=== PATIENT | female | born 1980 | race Caucasian/White ===

== ENCOUNTER 2016-08-05 12:46 | Emergency (ER) | payer OTHER ==
[2016-08-05 13:07] VITALS: BP 122/78
[2016-08-05] MEDS ORDERED: EPINEPHRINE SUBQ ONE (13:35)
[2016-08-05] MEDS ORDERED: PEPCID PO ONE (13:35)
--- NOTE | 2016-08-05 13:43 | PROVIDER DOCUMENTATION ---
HPI-Rash/Wound/ReCheck <Anthony Javierdoreen Juarez - Last Filed: 08/05/16 13:42> - General Source: patient - History of Present Illness-Dermatology Location: reports: face, other (throat) Quality: reports: stinging (to face), other (tightness to throat) Onset/Duration: reports: just prior to arrival Timing: reports: still present, intermittent Context/Associated Symptoms: reports: denies symptoms Identifiable cause?: Yes Exposure: reports: unknown cause Locality of Occurance: Home Similar Symptoms Previously?: Yes Recently seen or treated by another doctor?: Yes <Tawnya Corrigan - Last Filed: 08/05/16 13:59> - General Chief Complaint: Allergic Reaction Stated Complaint: ALLERGIC REACTION Time Seen by Provider: 08/05/16 13:17 Allergies/Adverse Reactions: Allergies Allergy/AdvReac Type Severity Reaction Status Date / Time cefuroxime axetil * Allergy Intermediate HIVES Verified 09/17/15 15:03 [From Ceftin] ciprofloxacin [From Cipro] Allergy Intermediate HIVES Verified 09/17/15 15:03 ciprofloxacin HCl * Allergy Intermediate HIVES Verified 09/17/15 15:03 [From Cipro] diphenhydramine HCl * Allergy Intermediate HIVES Verified 09/17/15 15:03 [From Benadryl] egg Allergy Intermediate Unknown Verified 09/17/15 15:03 hydrocodone bitartrate * Allergy Intermediate NAUSEA Verified 09/17/15 15:03 [From Lortab] latex Allergy Intermediate Unknown Verified 09/17/15 15:03 morphine Allergy Intermediate HIVES Verified 09/17/15 15:03 oxycodone HCl * Allergy Intermediate NAUSEA Verified 09/17/15 15:03 [From Percocet] propofol Allergy Intermediate Unknown Verified 09/17/15 15:03 vancomycin Allergy Intermediate HIVES Verified 09/17/15 15:03 tramadol Allergy ITCHING Verified 09/17/15 15:03 butorphanol tartrate * AdvReac SHORTNESS Verified 09/17/15 15:03 [From Stadol] OF BREATH milk AdvReac Unknown Verified 09/17/15 15:03 prednisone AdvReac Unknown Verified 07/01/16 17:59 Home Medications: Home Medication List Medication Instructions Recorded Confirmed Last Taken Type Cholecalciferol (Vitamin D3) 2,000 unit PO QHS 0309/13/15 08/15/15 History [D-2000] Esomeprazole [Nexium] 40 mg PO BID 08/21/13 09/13/15 08/15/15 History Montelukast Sodium 10 mg PO QHS 08/21/13 09/13/15 08/15/15 History Propranolol [Inderal] 60 mg PO QHS 08/21/13 09/13/15 08/15/15 History Solifenacin Succinate [Vesicare] 10 mg PO QHS 08/21/13 09/13/15 08/15/15 History Budesonide/Formoterol Fumarate 2 puff INH DAILY 08/15/15 09/13/15 08/15/15 History [Symbicort 160-4.5 Mcg Inhaler] Clindamycin [Cleocin] 150 mg PO Q6HR #40 capsule 07/01/16 Unknown Rx Amoxicillin [Amoxil] 500 mg PO BID #14 capsule 08/05/16 Unknown Rx Epinephrine Auto Injector [Epipen] 0.3 mg IM DIRECTED PRN PRN #1 08/05/16 Unknown Rx [email or web address] - History of Present Illness-Dermatology Nature of Presenting Problem: Pt is 35 y/o F presents to the ED with allergic reactions to meds. Pt states seeing PCP and being diagnosed with strep and kidney infection. Pt states throat feeling tight and pressure in her chest. Pt denies F. (Tawnya Corrigan) Review of Systems - Adult - REVIEW OF SYSTEMS - ADULT Constitutional: denies: chills, fever Eyes: denies: blurred vision, double vision Ears, Nose, Mouth & Throat: reports: throat swelling. denies: ear pain, nose pain Cardiovascular: denies: chest pain, heart murmur, irregular heart rate Respiratory: denies: cough, shortness of breath, wheezing Gastrointestinal: denies: abdominal pain, diarrhea, nausea, vomiting Genitourinary: denies: dysuria, hematuria Musculoskeletal: denies: bone pain, joint pain, neck pain Integumentary: reports: rash (to face). denies: hives, itching Neurological: denies: dizziness/vertigo, headache/migraines Psychiatric: reports: no symptoms reported Endocrine: reports: no symptoms reported Hematologic/Lymphatic: reports: no symptoms reported Allergic/Immunologic: reports: no symptoms reported All Other Systems: Reviewed and Negative <Tawnya Corrigan - Last Filed: 08/05/16 13:59> Past History - Adult - PAST MEDICAL HISTORY-ADULT Major Childhood Illnesses: reports: denies history Cardiovascular: reports: arrhythmia, blood clots, HTN, hyperlipidemia Respiratory: reports: asthma Gastrointestinal: reports: GERD, ulcer, other (gastroparesis) Obstetrical/Gynecological: reports: denies history Genitourinary: reports: chronic UTI's (pt report sfrequent UTI's, last episode greater than a year ago. ) Musculoskeletal: reports: arthritis, chronic pain, fibromyalgia Neurological: reports: Seizures/Epilepsy, other (spina bifida; hydrocephalus) Endocrine/Immune: reports: anemia Other Conditions: reports: denies history - PRIOR SURGERIES/PROCEDURES Surgical/Procedure History: reports: appendectomy, cholecystectomy, orthopedic ( extremity) (ankle), other (shunts) - IMMUNIZATION STATUS Childhood Immunizations: See Nurse Assessment Flu Vaccine: See Nurse Assessment - FAMILY HISTORY Family History: reviewed, not pertinent <Tim Javier - Last Filed: 08/05/16 13:42> - PAST MEDICAL HISTORY-ADULT Review of Records: reports: Nursing Assessment Review, Medications Reviewed, Social history reviewed & non-contributory. Major Childhood Illnesses: reports: denies history Cardiovascular: reports: HTN, hyperlipidemia Respiratory: reports: asthma Gastrointestinal: reports: GERD Obstetrical/Gynecological: reports: denies history Genitourinary: reports: denies history Musculoskeletal: reports: denies history Neurological: reports: Seizures/Epilepsy Endocrine/Immune: reports: denies history Other Conditions: reports: denies history - PRIOR SURGERIES/PROCEDURES Surgical/Procedure History: reports: appendectomy, cholecystectomy - IMMUNIZATION STATUS Childhood Immunizations: See Nurse Assessment Flu Vaccine: See Nurse Assessment - FAMILY HISTORY Family History: reviewed, not pertinent - SOCIAL HISTORY Smoking: quit less than 1 year, cigarettes Substance Use: denies Living Situation: family <Tawnya Corrigan - Last Filed: 08/05/16 13:59> Physical Exam-General - PHYSICAL EXAM-ADULT Initial Vital Signs Reviewed: Yes - CONSTITUTIONAL General Appearance: appears well, alert, no apparent distress - EYES Eyes: PERRL/EOMI, pink conjunctivae, fundi clear, no AV nicking - HEAD, EARS, NOSE, MOUTH & THROAT HENMT: normocephalic/atraumatic, moist mucous membranes, normal ENT inspection, TMs normal, pharynx normal - NECK Neck: non-tender, full range of motion, supple, normal inspection - RESPIRATORY Respiratory: chest non-tender, lungs clear, normal breath sounds, no pleuratic chest pain, no respiratory distress, no accessory muscle use - CARDIOVASCULAR Cardiovascular: normal peripheral pulses, regular rate, rhythm, no edema, no gallop, no JVD, no murmur - GASTROINTESTINAL (ABDOMEN) Abdominal Exam: normal bowel sounds, non tender, soft, no organomegaly, no pulsatile mass - LYMPHATIC Lymphatic: no adenopathy - MUSCULOSKELETAL Back Exam: normal inspection, no CVA tenderness, no vertebral tenderness Extremity: normal range of motion, non-tender - SKIN Integumentary: normal color, normal turgor, warm/dry - NEUROLOGIC Neurologic: stable manager II-XII nml as tested, grossly normal, no motor/sensory deficits - PSYCHIATRIC Psych/Mental Status: normal mood/affect, normal thought content, normal thought process, oriented x 3 <Tawnya Corrigan - Last Filed: 08/05/16 13:59> Progress <Tim Javier - Last Filed: 08/05/16 13:42> <Tawnya Corrigan - Last Filed: 08/05/16 13:59> - PLAN OF CARE/RESULTS Progress/Plan/Lab Results: Orders Category Date Time Status Epinephrine Med 08/05/16 13:35 Discontinued 0.3 mg SUBQ NOW ONE Famotidine [Pepcid] Med 08/05/16 13:35 Discontinued 20 mg PO NOW ONE Vital Signs - 24 hr 08/05/16 13:03 Temperature 98 F Pulse Rate 78 Respiratory 18 Rate Blood Pressure 122/78 O2 Sat by Pulse 100 Oximetry (Tawnya Corrigan) Departure - Departure Time of Disposition Order: 13:42 Certified Medical Emergency: Urgent <Tim Javier - Last Filed: 08/05/16 13:42> - Departure Time of Disposition Order: 13:59 Certified Medical Emergency: Emergent <Tawnya Corrigan - Last Filed: 08/05/16 13:59> - Departure DIAGNOSIS: Medication reaction, Rash Disposition: HOME 01 Condition: Good Additional Instructions: Take medication as prescribed. Follow up with your primary care provider. ED Follow Up Instructions: You have been treated by a care provider in the Emergency Department. These instructions are being provided to you so you can have an understanding of how to care for yourself upon discharge. Upon discharge from the Emergency Department, you are responsible for making arrangements for follow-up care by a physician of your choice. Take all prescribed medications as directed. Return to the Emergency Department immediately for any new or worsening symptoms. You may call the Physician Referral phone number at [phone] to obtain a list of Physicians who are taking new patients. Prescriptions: Amoxicillin [Amoxil] 500 mg PO BID #14 capsule Epinephrine Auto Injector [Epipen] 0.3 mg IM DIRECTED PRN PRN #1 [email or web address] PRN Reason: anaphylaxis Referrals: Brittany Bullock CRNP [Primary Care Provider] - Forms: Return to School/Parent Work Instructions: Drug Rash, Epinephrine injection, Amoxicillin capsules or tablets , Drug Allergy Attestation - Physician/ [id number] Attestation Patient care was provided by Advanced Practice Provider:: Yes Advanced Practice Provider:: Tim Javier Advanced Practice Provider documentation review:: The Mid-level provider documentation, treatment plan and medical decision making was reviewed by the physician who agrees with all treatment and medical decision making by the P. <Tim Javier - Last Filed: 08/05/16 13:42> - Scribe Verification/Attestation Scribe:: Tawnya Corrigan Acting as Scribe for:: Tim Javier Scribe documention review:: This chart was documented by a scribe and accurately reflects the service the provider performed and the decisions made by the provider. <Tawnya Corrigan - Last Filed: 08/05/16 13:59> Physician Attestation
== END 2016-08-05 13:57 | disposition home or self-care (01) ==
LOC: P.ED 12:46
DX: T50.905A Adverse effect of unspecified drugs, medicaments and biological substances, initial encounter (principal); R21 Rash and other nonspecific skin eruption; R07.89 Other chest pain; R22.1 Localized swelling, mass and lump, neck; I10 Essential (primary) hypertension; E78.5 Hyperlipidemia, unspecified; J45.909 Unspecified asthma, uncomplicated; K21.9 Gastro-esophageal reflux disease without esophagitis; M19.90 Unspecified osteoarthritis, unspecified site; G89.29 Other chronic pain; M79.7 Fibromyalgia; Z79.899 Other long term (current) drug therapy; Q05.9 Spina bifida, unspecified; Z87.440 Personal history of urinary (tract) infections; Z87.891 Personal history of nicotine dependence
CPT/HCPCS: 96374; J0171

== ENCOUNTER 2016-08-21 09:05 | Emergency (ER) | payer OTHER ==
[2016-08-21 09:19] VITALS: BP 116/82
[2016-08-21] MEDS ORDERED: ZOFRAN ODT PO ONE (09:30)
[2016-08-21 09:56] LABS: URINE CULTURE PL NEEDED? NO; URINE SOURCE CLEAN CATCH
[2016-08-21 10:06] LABS: BILIRUBIN URINE NEGATIVE (NEGATIVE); BLOOD URINE NEGATIVE (NEGATIVE); CLARITY CLEAR (CLEAR); COLOR YELLOW; GLUCOSE URINE NEGATIVE (NEGATIVE); LEUKOCYTES URINE TRACE (NEGATIVE); NITRITE URINE NEGATIVE (NEGATIVE); PROTEIN URINE NEGATIVE (NEGATIVE); SP GRAVITY URINE 1.015; UROBILINOGEN URINE NORMAL
[2016-08-21 10:19] LABS: UR AMPHETAMINES QUAL NONE DETECTED (NONE DETECT); UR BARBITUATES QUAL NONE DETECTED (NONE DETECT); UR BENZODIAZEPIN QUAL NONE DETECTED (NONE DETECT); UR CANNABINOIDS QUAL NONE DETECTED (NONE DETECT); UR COCAINE QUAL NONE DETECTED (NONE DETECT); UR MDMA QUAL NONE DETECTED (NONE DETECT); UR METHADONE QUAL NONE DETECTED (NONE DETECT); UR METHAMPHETAMINE QUAL NONE DETECTED (NONE DETECT); UR OPIATES QUAL NONE DETECTED (NONE DETECT); UR OXYCODONE QUAL NONE DETECTED (NONE DETECT); UR PCP QUAL NONE DETECTED (NONE DETECT); UR TCA QUAL NONE DETECTED (NONE DETECT)
--- NOTE | 2016-08-21 10:20 | PROVIDER DOCUMENTATION ---
HPI-Headache - General Chief Complaint: General Adult Stated Complaint: HEADACHE Time Seen by Provider: 08/21/16 09:28 Source: patient, family (MOTHER) Allergies/Adverse Reactions: Patient Allergies Allergy/AdvReac Type Severity Reaction Status Date / Time cefuroxime axetil * Allergy Intermediate HIVES Verified 09/17/15 15:03 [From Ceftin] ciprofloxacin [From Cipro] Allergy Intermediate HIVES Verified 09/17/15 15:03 ciprofloxacin HCl * Allergy Intermediate HIVES Verified 09/17/15 15:03 [From Cipro] diphenhydramine HCl * Allergy Intermediate HIVES Verified 09/17/15 15:03 [From Benadryl] egg Allergy Intermediate Unknown Verified 09/17/15 15:03 hydrocodone bitartrate * Allergy Intermediate NAUSEA Verified 09/17/15 15:03 [From Lortab] latex Allergy Intermediate Unknown Verified 09/17/15 15:03 morphine Allergy Intermediate HIVES Verified 09/17/15 15:03 oxycodone HCl * Allergy Intermediate NAUSEA Verified 09/17/15 15:03 [From Percocet] propofol Allergy Intermediate Unknown Verified 09/17/15 15:03 vancomycin Allergy Intermediate HIVES Verified 09/17/15 15:03 tramadol Allergy ITCHING Verified 09/17/15 15:03 butorphanol tartrate * AdvReac SHORTNESS Verified 09/17/15 15:03 [From Stadol] OF BREATH doxycycline AdvReac ANAPHYLAXIS Verified 08/21/16 09:19 milk AdvReac Unknown Verified 09/17/15 15:03 prednisone AdvReac Unknown Verified 07/01/16 17:59 Home Medications: Home Medication List Medication Instructions Recorded Confirmed Last Taken Type Cholecalciferol (Vitamin D3) 2,000 unit PO QHS 08/21/13 08/21/16 08/15/15 History [D-2000] Esomeprazole [Nexium] 40 mg PO BID 08/21/13 08/21/16 08/15/15 History Montelukast Sodium 10 mg PO QHS 08/21/13 08/21/16 08/15/15 History Propranolol [Inderal] 60 mg PO QHS 08/21/13 08/21/16 08/15/15 History Solifenacin Succinate [Vesicare] 10 mg PO QHS 08/21/13 08/21/16 08/15/15 History Budesonide/Formoterol Fumarate 2 puff INH DAILY 08/15/15 08/21/16 08/15/15 History [Symbicort 160-4.5 Mcg Inhaler] Epinephrine Auto Injector [Epipen] 0.3 mg IM DIRECTED PRN PRN #1 08/05/16 Unknown Rx [email or web address] Diazepam [Valium] 2 mg PO DAILY PRN 08/21/16 08/21/16 Unknown History Dicyclomine [Bentyl] 10 mg PO DAILY PRN 08/21/16 08/21/16 Unknown History Fluticasone 50 Mcg Nasal [place] 2 spray INH DAILY 08/21/16 08/21/16 Unknown History [Flonase] Meclizine HCl [Antivert] 25 mg PO Q8H PRN PRN 08/21/16 08/21/16 Unknown History Promethazine [Phenergan] 25 mg PO Q6H PRN PRN 08/21/16 08/21/16 Unknown History - History of Present Illness-Headache Nature of Presenting Problem: Pt is 35 y/o F presents to the ED with PEÑA. Pt states she has shunt placed in R side of head for hydrocephalus. Pt states PEÑA started yesterday. Pt states N with one episode of V. Pt denies CP and abdominal pain. Headache Location: reports: occipital Quality of Pain: reports: pressure Severity: reports: mild Onset/Duration: reports: 24 hours ago Timing: reports: still present, intermittent Headache Context: reports: nothing Headache History: reports: occasional headaches Any recent trauma/injury?: reports: none Headache severity at the maximum: moderate Headache Exacerbated by:: reports: nothing Modifying Factors: improves with: nothing Associated Symptoms: reports: headache, nausea, vomiting. denies: short of breath, decreased ability to walk or stand, fainting, dizziness, confusion, chest pain, neck/back pain, fatigue, fever/chills, insomnia, loss of consciousness, muscle spasms, numbness in legs/feet, paresthesia, diaphoretic, ringing in ears, seizures, sleepy, slurred speech, tingling in legs/feet, trouble walking, vision changes, weakness Similar Symptoms Previously?: Yes Recently seen or treated by another doctor?: No Review of Systems - Adult - REVIEW OF SYSTEMS - ADULT Constitutional: denies: chills, fever Eyes: denies: blurred vision, double vision Ears, Nose, Mouth & Throat: denies: ear pain, nose pain, throat pain Cardiovascular: denies: chest pain, heart murmur, irregular heart rate Respiratory: denies: cough, shortness of breath, wheezing Gastrointestinal: reports: nausea, vomiting. denies: abdominal pain, diarrhea Genitourinary: denies: dysuria, hematuria Musculoskeletal: denies: bone pain, joint pain, neck pain Integumentary: denies: hives, itching Neurological: reports: headache/migraines (PEÑA). denies: dizziness/vertigo Psychiatric: reports: no symptoms reported Endocrine: reports: no symptoms reported Hematologic/Lymphatic: reports: no symptoms reported Allergic/Immunologic: reports: no symptoms reported All Other Systems: Reviewed and Negative Past History - Adult - PAST MEDICAL HISTORY-ADULT Review of Records: reports: Nursing Assessment Review, Medications Reviewed, Social history reviewed & non-contributory. Major Childhood Illnesses: reports: denies history Cardiovascular: reports: HTN, hyperlipidemia Respiratory: reports: asthma Gastrointestinal: reports: GERD Obstetrical/Gynecological: reports: denies history Genitourinary: reports: denies history Musculoskeletal: reports: denies history Neurological: reports: Seizures/Epilepsy Endocrine/Immune: reports: denies history Other Conditions: reports: denies history - PRIOR SURGERIES/PROCEDURES Surgical/Procedure History: reports: appendectomy, cholecystectomy - IMMUNIZATION STATUS Childhood Immunizations: See Nurse Assessment Flu Vaccine: See Nurse Assessment - FAMILY HISTORY Family History: reviewed, not pertinent - SOCIAL HISTORY Smoking: quit less than 1 year, cigarettes Substance Use: denies Living Situation: family Physical Exam- Neurological - Physical Exam-Neuro Initial Vital Signs Reviewed: Yes General Appearance: appears well, alert, no apparent distress Eye Exam: bilateral eye: normal inspection, PERRL, EOMI HENMT: normocephalic/atraumatic, moist mucous membranes, normal ENT inspection, TMs normal, pharynx normal Head Injury: no evidence of injury Neck: non-tender, full range of motion, supple, normal inspection Respiratory: chest non-tender, lungs clear, normal breath sounds, no pleuratic chest pain, no respiratory distress, no accessory muscle use Cardiovascular: normal peripheral pulses, regular rate, rhythm, no edema, no gallop, no JVD, no murmur Abdominal Exam: normal bowel sounds, non tender, soft, no organomegaly, no pulsatile mass Lymphatic: no adenopathy Extremity: normal range of motion, non-tender, no pedal edema, no calf tenderness, normal capillary refill florist designer Exam: normal hearing, normal speech, PERRL Coordination/Gait: normal finger to nose, normal gait Motor/Sensory: no motor deficit, no sensory deficit, no pronator drift Neurologic: grossly normal Integumentary: normal color, normal turgor, warm/dry Psych/Mental Status: normal mood/affect, oriented x 3 Progress - PLAN OF CARE/RESULTS Progress/Plan/Lab Results: Laboratory Tests 08/21/16 08/21/16 08/21/16 09:47 09:47 09:47 Urine Source CLEAN CATCH Urine Color YELLOW Urine Clarity CLEAR Urine pH 7.0 Ur Specific [place] 1.015 Urine Protein NEGATIVE Urine Ketones NEGATIVE Urine Blood NEGATIVE Urine Nitrite NEGATIVE Urine Bilirubin NEGATIVE Urine Urobilinogen NORMAL Urine WBC TRACE A Urine Glucose NEGATIVE Urine Test NEGATIVE Urine Opiates Screen NONE DETECTED Ur Oxycodone Screen NONE DETECTED Urine Methadone Screen NONE DETECTED Ur Barbituates Screen NONE DETECTED Ur Tricyclics Screen NONE DETECTED Ur Phencyclidine Scrn NONE DETECTED Ur Amphetamines Screen NONE DETECTED U Methamphetamines Scrn NONE DETECTED Urine MDMA Screen NONE DETECTED U Benzodiazepines Scrn NONE DETECTED Urine Cocaine Screen NONE DETECTED U Cannabinoids Screen NONE DETECTED Orders Category Date Time Status NPO Diet 08/21/16 10:17 Active CHEST-1 VIEW [RAD] Stat Exams 08/21/16 10:17 Ordered HEAD W/O CONTRAST [CT] Stat Exams 08/21/16 09:30 Ordered AMYLASE [CHEM] Stat Lab 08/21/16 10:17 Ordered CBC WITH ELECTRONIC DIFF [HEME] Stat Lab 08/21/16 10:17 Ordered COMPREHENSIVE METABOLIC PANEL [CHEM] Stat Lab 08/21/16 10:17 Ordered LIPASE [CHEM] Stat Lab 08/21/16 10:17 Ordered TEST-URINE [PREG] Stat Lab 08/21/16 09:[address] W/POSS RFLX CULT [URINALYSIS] Stat Lab 08/21/16 09:47 Results URINE DRUG SCREEN [address] Stat Lab 08/21/16 09:47 Completed Ondansetron Odt [Zofran Odt] Med 08/21/16 09:30 Discontinued 4 mg PO NOW ONE Vital Signs - 24 hr 08/21/16 09:15 Temperature 98.0 F Pulse Rate 96 H Respiratory 18 Rate Blood Pressure 116/82 O2 Sat by Pulse 100 Oximetry Laboratory Tests 08/21/16 08/21/16 08/21/16 09:47 09:47 09:47 WBC RBC Hgb Hct MCV MCH MCHC RDW Std Deviation Plt Count MPV Immature Gran % (Auto) Neut % (Auto) Lymph % (Auto) Mcdonald % (Auto) Eos % (Auto) Baso % (Auto) Immature Gran # (Auto) Neut # (Auto) Lymph # (Auto) Mcdonald # (Auto) Eos # (Auto) Baso # (Auto) Sodium Potassium Chloride Carbon Dioxide Anion Gap BUN Creatinine Estimated GFR/1.73 m2 BUN/Creatinine Ratio Glucose Calculated Osmolality Calcium Total Bilirubin AST ALT Alkaline Phosphatase Total Protein Albumin Globulin Albumin/Globulin Ratio Amylase Lipase Urine Source CLEAN CATCH Urine Color YELLOW Urine Clarity CLEAR Urine pH 7.0 Ur Specific [place] 1.015 Urine Protein NEGATIVE Urine Ketones NEGATIVE Urine Blood NEGATIVE Urine Nitrite NEGATIVE Urine Bilirubin NEGATIVE Urine Urobilinogen NORMAL Urine Microscopic RBC Not Reportable Urine WBC TRACE A Ur Epithelial Cells >10 A Urine Glucose NEGATIVE Urine Test NEGATIVE Urine Opiates Screen NONE DETECTED Ur Oxycodone Screen NONE DETECTED Urine Methadone Screen NONE DETECTED Ur Barbituates Screen NONE DETECTED Ur Tricyclics Screen NONE DETECTED Ur Phencyclidine Scrn NONE DETECTED Ur Amphetamines Screen NONE DETECTED U Methamphetamines Scrn NONE DETECTED Urine MDMA Screen NONE DETECTED U Benzodiazepines Scrn NONE DETECTED Urine Cocaine Screen NONE DETECTED U Cannabinoids Screen NONE DETECTED 08/21/16 08/21/16 10:55 10:55 WBC 5.74 RBC 3.93 L Hgb 12.6 Hct 38.2 MCV 97.2 MCH 32.1 H MCHC 33.0 RDW Std Deviation 11.6 Plt Count 387 MPV 9.2 Immature Gran % (Auto) 0.2 Neut % (Auto) 59.3 Lymph % (Auto) 29.1 Mcdonald % (Auto) 8.0 Eos % (Auto) 2.4 Baso % (Auto) 1.0 H Immature Gran # (Auto) 0.01 Neut # (Auto) 3.40 Lymph # (Auto) 1.67 Mcdonald # (Auto) 0.46 Eos # (Auto) 0.14 Baso # (Auto) 0.06 Sodium 142 Potassium 4.1 Chloride 107 Carbon Dioxide 25 Anion Gap 10 BUN 11 Creatinine 0.4 L Estimated GFR/1.73 m2 > 60 BUN/Creatinine Ratio 28 Glucose 100 Calculated Osmolality 283 Calcium 9.2 Total Bilirubin 0.40 AST 19 ALT 16 Alkaline Phosphatase 57 Total Protein 6.9 Albumin 4.2 Globulin 3.0 Albumin/Globulin Ratio 2.0 Amylase 88 Lipase 42 Urine Source Urine Color Urine Clarity Urine pH Ur Specific [place] Urine Protein Urine Ketones Urine Blood Urine Nitrite Urine Bilirubin Urine Urobilinogen Urine Microscopic RBC Urine WBC Ur Epithelial Cells Urine Glucose Urine Test Urine Opiates Screen Ur Oxycodone Screen Urine Methadone Screen Ur Barbituates Screen Ur Tricyclics Screen Ur Phencyclidine Scrn Ur Amphetamines Screen U Methamphetamines Scrn Urine MDMA Screen U Benzodiazepines Scrn Urine Cocaine Screen U Cannabinoids Screen - XRAY 1 XRAY: Bilateral XRAY Study: Chest Impression: Normal XRAY Interpretation: negative - CT/MRI 1 CT Study: Head Impression: Abnormal (rt ethmoid sinusitis) CT Results: no acute intracranial disease Departure - Departure Time of Disposition Order: 12:02 DIAGNOSIS: Nausea Headache Qualifiers: Headache type: unspecified Headache chronicity pattern: unspecified pattern Intractability: not intractable Qualified Code(s): R51 - Headache Sinusitis Qualifiers: Sinusitis location: ethmoidal Chronicity: unspecified Qualified Code(s): J32.2 - Chronic ethmoidal sinusitis Disposition: HOME 01 Certified Medical Emergency: Emergent Condition: Stable Additional Instructions: ED Follow Up Instructions: You have been treated by a care provider in the Emergency Department. These instructions are being provided to you so you can have an understanding of how to care for yourself upon discharge. Upon discharge from the Emergency Department, you are responsible for making arrangements for follow-up care by a physician of your choice. Take all prescribed medications as directed. Return to the Emergency Department immediately for any new or worsening symptoms. You may call the Physician Referral phone number at [phone] to obtain a list of Physicians who are taking new patients. Referrals: Brittany Bullock CRNP [Primary Care Provider] - Call for Appoint. -1 week Instructions: Migraine Headache, [id number] Attestation - Scribe Verification/Attestation Scribe:: Tawnya Corrigan Acting as Scribe for:: Kaylin Topete Scribe documention review:: This chart was documented by a scribe and accurately reflects the service the provider performed and the decisions made by the provider.
[2016-08-21 10:30] LABS: URINE EPITHELIAL CELLS >10 /HPF (<10)
[2016-08-21 11:04] LABS: MANUAL DIFF NEEDED? NO
[2016-08-21 11:06] LABS: EOS# 0.14 X1000 (0.0-0.7); EOS% 2.4 % (0.0-10.0); HEMATOCRIT 38.2 % (37.0-47.0); HEMOGLOBIN 12.6 g/dL (12.0-16.0); IMM GRAN# 0.01 X1000 (0.0-0.04); IMM GRAN% 0.2 % (0.0-0.5); LYMPH# 1.67 X1000 (1.2-3.4); LYMPH% 29.1 % (20.5-51.1); MCH 32.1 PG (27-31); MCV 97.2 FL (81-99); MONO# 0.46 X1000 (0.11-0.59); MPV 9.2 FL (7.4-10.4); NEUT% 59.3 % (42.2-75.2); PLT 387 X1000 (130-400); RBC 3.93 XMIL (4.2-5.4)
[2016-08-21 11:28] LABS: AGAP 10; ALBUMIN 4.2 g/dL (3.5-5.0); ALKALINE PHOSPHATASE 57 U/L (32-104); AMYLASE 88 U/L (20-200); BUN 11 mg/dL (8-22); CALCIUM 9.2 mg/dL (8.8-10.2); CHLORIDE 107 mmol/L (98-107); COSMO 283; GOT 19 U/L (10-30); GPT 16 U/L (10-36); LIPASE 42 U/L (13-60); POTASSIUM 4.1 mmol/L (3.5-5.1); SODIUM 142 mmol/L (136-145); TCO2 25 mmol/L (25-35); TOTAL PROTEIN 6.9 g/dL (6.3-8.3)
--- NOTE | 2016-08-21 11:29 | Diag Imaging Result Document ---
PROCEDURE NAME: HEAD W/O CONTRAST - 08/21/2016 CT OF THE HEAD WITHOUT CONTRAST: FINDINGS: There is no evidence of hydrocephalus and the ventricular system is similar in appearance to the previous study of 09/17/2015. There is no evidence of intracerebral bleed. Cerebellar tonsils protrude below the foramen magnum which was also the case on the previous study. Some opacification of ethmoid air cells on the right. There is a small amount of fluid in the right sphenoid sinus. These findings were not present on the previous study. IMPRESSION: Mild right-sided sinusitis. No evidence of acute intracranial disease.
--- NOTE | 2016-08-21 11:48 | Diag Imaging Result Document ---
PROCEDURE NAME: CHEST-1 VIEW - 08/21/2016 AP CHEST: COMPARISON: 07/01/2016. FINDINGS: The lungs are well expanded. The heart is not enlarged. The vessels are not distended. There are no infiltrates. No pleural effusion is identified. A portion of a catheter overlies the lower right chest and upper abdomen. There is also a catheter overlying the upper right hemithorax which may be a jugular line. These are unchanged. No pneumothorax. IMPRESSION: No pneumonia.
== END 2016-08-21 12:12 | disposition home or self-care (01) ==
LOC: P.ED 09:05
DX: J32.2 Chronic ethmoidal sinusitis (principal); R11.0 Nausea; R51 Headache; I10 Essential (primary) hypertension; E78.5 Hyperlipidemia, unspecified; J45.909 Unspecified asthma, uncomplicated; K21.9 Gastro-esophageal reflux disease without esophagitis; R56.9 Unspecified convulsions; Z79.899 Other long term (current) drug therapy; Z87.891 Personal history of nicotine dependence
CPT/HCPCS: 70450; 71010; 80053; 80305; 81001; 81025; 82150; 83690; 85025